=== PATIENT | male | born 2000 | race Caucasian/White ===

== ENCOUNTER 2023-01-29 02:54 | Emergency (ER) | payer BC, SELFPAY ==
[2023-01-29 02:58] VITALS: BP 128/59; PULSE 51; RESP 14; TEMP 36.7; O2SAT 98
[2023-01-29 03:25] VITALS: BP 140/76; PULSE 60; RESP 14; TEMP 36.4; O2SAT 100
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
[2023-01-29 04:14] VITALS: BP 116/79; PULSE 53; RESP 14; O2SAT 98
[2023-01-29 05:03] VITALS: BP 125/78; PULSE 55; RESP 13; TEMP 36.6; O2SAT 100
== END 2023-01-29 05:04 | disposition home or self-care (01) ==
PROVIDERS: Emergency Provider Emergency Medicine
DX: H10.9 Unspecified conjunctivitis (principal)
CPT/HCPCS: 99283